=== PATIENT | female | born 1970 | race Caucasian/White ===

== ENCOUNTER 2022-04-12 15:06 | Emergency (ER) | payer OTHER ==
[~2022-04-12 15:06] MED LIST: ATIVAN0.5 MG PO; IBUPROFEN800 MG PO; NITROQUIK SL0.4 MG PO
[2022-04-12 16:52] LABS: BASOPHIL 0.1 % (0-2); EOSINOPHIL 2.5 % (0-5); HGB 12.3 g/dl (12.5-16.0); LYMPHOCYTE 12.5 % (15-48); MCH 28.1 pg (25.0-31.0); MCHC 31.5 g/dL (32.0-36.0); MCV 89.2 fL (78.0-100.0); MONOCYTE 5.8 % (0-12); MPV 9.8 fL (6.0-9.5); NEUTROPHIL 78.5 % (41-80); NRBC 0; PLT 316 K/uL (150-400); RBC 4.37 M/uL (4.20-5.40); RDW 14.9 % (11.5-14.0); WBC 10.5 K/uL (4.0-10.5)
[2022-04-12 16:56] LABS: INR 0.93 (0.9-1.2); PROTHROMBIN TIME 11.9 SECONDS (11.8-13.4)
[2022-04-12 17:20] LABS: ALBUMIN 3.2 g/dL (3.4-5.0); BILIRUBIN - TOTAL 0.5 mg/dL (0.2-1.0); BUN/CREAT RATIO (CALC) 17.1 RATIO; CREATININE 1.17 mg/dL (0.51-0.95); FT4 (FREE T4) 0.9 ng/dL (0.76-1.46); GLOBULIN (CALCULATION) 3.7 g/dL; MAGNESIUM 1.4 mg/dL (1.8-2.4); TOTAL PROTEIN 6.9 g/dL (6.4-8.2)
== END 2022-04-12 20:15 | disposition home or self-care (01) ==
LOC: FER 15:06
PROVIDERS: Emergency Medicine
DX: R00.2 Palpitations (principal); E83.42 Hypomagnesemia; I10 Essential (primary) hypertension; J44.9 Chronic obstructive pulmonary disease, unspecified; Z79.899 Other long term (current) drug therapy; Z28.311 Partially vaccinated for COVID-19
CPT/HCPCS: 36415; 71045; 80053; 83735; 83880; 84439; 84443; 84484; 85025; 85610; 85730; 93005; J3475

== ENCOUNTER → 2022-07-10 | Day surgery (SDC) | payer OTHER ==
[~2022-07-10] VITALS: Ht 157.5 cm; Wt 101.6 kg
[~2022-07-10] MED LIST changes: +BUDESONIDE EC3 M1 PO; +CETIRIZINE HCL10 MG PO; +DICYCLOMINE HCL20 MG PO; +GABAPENTIN600 MG PO; +KLONOPIN1 MG PO; +LISINOPRIL40 MG PO; +OMEPRAZOLE 20MG20 MG PO; +SERTRALINE HCL50 MG PO; +TRELEGY ELLIPT1 EAC1 INH; +VENTOLIN HFA IN18 GM INH
== END | disposition home or self-care (01) ==
LOC: FAS 10:20
DX: K57.30 Diverticulosis of large intestine without perforation or abscess without bleeding (principal); K52.9 Noninfective gastroenteritis and colitis, unspecified; G89.29 Other chronic pain; F41.9 Anxiety disorder, unspecified; J45.909 Unspecified asthma, uncomplicated; F32.A Depression, unspecified; I10 Essential (primary) hypertension; F17.210 Nicotine dependence, cigarettes, uncomplicated
CPT/HCPCS: 94640; J2250; J2704; J7120